=== PATIENT | male | born 2000 | race Caucasian/White ===

== ENCOUNTER 2020-02-26 20:24 | Emergency (ER) | payer SELFPAY ==
[~2020-02-26] VITALS: Ht 175.3 cm; Wt 73.0 kg
[2020-02-26] MEDS ORDERED: LIDOCAINE HCL/EPINEPHRINE 1%-EPI 1:100,000 30 ML VIAL INFIL ONE (22:30)
[2020-02-26] MEDS ORDERED: CEFTRIAXONE SODIUM 250 MG/VIAL IM ONE (22:30)
[2020-02-26] MEDS ORDERED: AZITHROMYCIN 500 MG TABLET PO ONE (22:30)
[2020-02-26 22:33] VITALS: BP 130/65
[2020-02-29 04:07] LABS: NEISSERIA GONORRHOEAE NAA Negative (Negative)
== END 2020-02-26 22:52 | disposition home or self-care (01) ==
LOC: ER 20:24
DX: A64 Unspecified sexually transmitted disease (principal)
CPT/HCPCS: 87491; 87591; 96372; 99283; J0696